=== PATIENT | female | born 1970 | race Caucasian/White ===

== ENCOUNTER 2016-08-13 17:49 | Emergency (ER) | payer BC, OTHER ==
[2016-08-13 18:07] VITALS: BP 114/58; PULSE 89; TEMP 97.9; BMI 33.6
--- NOTE | 2016-08-13 18:37 | PDOC ---
History of Present Illness - General Chief Complaint: Pain Stated Complaint: LEG PAIN Time Seen by Provider: 08/13/16 18:14 History Source: Patient - History of Present Illness Occurred: reports: other Severity: Yes: severe Lower Extremity Pain Location: left: leg Past History - Past Medical History Allergies/Adverse Reactions: Allergies Allergy/AdvReac Type Severity Reaction Status Date / Time No Known Allergies Allergy Verified 08/13/16 18:01 Home Medications: Ambulatory Orders Insulin Lispro [Humalog] 0 unit SQ DAILY 03/28/12 Cyclobenzaprine HCl [Flexeril] 5 mg PO TID #9 tablet 06/30/15 Ibuprofen [Motrin -] 800 mg PO TID #30 tablet 06/30/15 Ibuprofen [Motrin -] 800 mg PO Q6H #30 tablet 08/13/16 Diabetes: Yes HTN: Yes Suicide Attempt (Hx): No Thyroid Disease: Yes (HYPO) - Immunization History Immunization Up to Date: Yes - Psycho/Social/Smoking Cessation Hx Anxiety: Yes Suicidal Ideation: No Smoking Status: Yes Smoking History: Current every day smoker Years of Tobacco Use: 20 Have you smoked in the past 12 months: Yes Number of Cigarettes Smoked Daily: 10 Information on smoking cessation initiated: No Hx Alcohol Use: No Drug/Substance Use Hx: No Substance Use Type: None Review of Systems - Review of Systems Constitutional: No: Chills, Fever Neurological: No: Numbness, Tingling, Weakness *Physical Exam - Vital Signs Last Vital Signs Temp Pulse Resp BP Pulse Ox 97.9 F 89 19 114/58 100 08/13/16 18:01 08/13/16 18:01 08/13/16 18:01 08/13/16 18:01 08/13/16 18:01 - Physical Exam General Appearance: Yes: Appropriately Dressed. No: Apparent Distress HEENT: positive: Normal Voice Neck: positive: Supple Respiratory/Chest: negative: Respiratory Distress Extremity: positive: Other (varicosities to L leg, pedal pulses intact) Integumentary: positive: Dry, Warm Neurologic: positive: Fully Oriented, Alert, Normal Mood/Affect Medical Decision Making - Medical Decision Making 08/13/16 18:34 46 yo F, h/o IDDM, smoker, here w/ L leg pain x 4 months, here w/ gradual worsening of pain. Has been seen by her PMD w/ neg labs and told it most likely isn't neuropathy as per pt. States pain located to L thigh and radiates to foot , unable to describe, intermittent w/ no alleviating/exacerbating factors. No sensory changes, weakness or back pain. Denies trauma See exam Chronic LLE pain Possibly 2/2 varicosities, pulses intact -pain control -has pmd f/u tomorrow, will possibly need vasc referral *DC/Admit/Observation/Transfer Diagnosis at time of Disposition: Chronic leg pain Qualifiers: Laterality: left Qualified Code(s): M79.605 - Pain in left leg; G89.29 - Other chronic pain - Discharge Dispostion Disposition: HOME Condition at time of disposition: Stable - Prescriptions Prescriptions: Ibuprofen [Motrin -] 800 mg PO Q6H #30 tablet - Patient Instructions Additional Instructions: Please follow up with your PMD tomorrow
== END 2016-08-13 18:42 | disposition home or self-care (01) ==
LOC: JERFT 17:49
DX: M79.605 Pain in left leg (principal); G89.29 Other chronic pain; I10 Essential (primary) hypertension; E11.9 Type 2 diabetes mellitus without complications; Z79.4 Long term (current) use of insulin; E03.9 Hypothyroidism, unspecified
CPT/HCPCS: 99281-25